=== PATIENT | male | born 1960 | race African-American/Black ===

== ENCOUNTER 2017-07-02 11:34 | Emergency (ER) | payer OTHER ==
[~2017-07-02] VITALS: Ht 182.9 cm; Wt 100.0 kg
[~2017-07-02 11:34] MED LIST: ATOR20TA PO; HYDR-3534 PO; MEDR4PAK3 PO; NORV10TA PO; SYNT112T PO
[2017-07-02 11:36] VITALS: BP 139/76; PULSE 93; RESP 15; TEMP 97.8; O2SAT 97
--- NOTE | 2017-07-02 12:00 | PD ---
HPI Chief Complaint: Headache Time Seen by Provider: 11:51 Travel History International Travel<30 days: No Contact w/Intl Traveler<30days: No Traveled to known affect area: No History of Present Illness HPI This patient complains of headache. Duration is 4 days. It's located in the left parietal area. By his own admission it's very minor. He has a vague minimal throbbing but he wanted to make sure he wasn't anything dangerous. No trauma thunderclap onset or fever. No neurologic complaint otherwise. PFSH Past Medical History Anxiety: Yes Cancer: Yes (PROSTATE) Cardiovascular Problems: Yes High Cholesterol: Yes Chest Pain: Yes (12/30/13) Diabetes: Yes (TYPE 2, DX. OCTOBER 2013) Diminished Hearing: No Endocrine: Yes Gastrointestinal Disorders: No Genitourinary: Yes Hypertension: Yes Immune Disorder: No Musculoskeletal: No Neurologic: No Psychiatric: Yes Reproductive: No Respiratory: No Thyroid Disease: Yes Past Surgical History Endocrine Surgery: Yes (THYROID SURGERY) Other Surgery: No Social History Alcohol Use: No Tobacco Use: No Substance Use: No Allergies-Medications (Allergen,Severity, Reaction): Coded Allergies: No Known Allergies (Unverified , 01/19/16) Reported Meds & Prescriptions Reported Meds & Active Scripts Active Lortab 7.5 mg/325 mg (Hydrocodone/Acetaminophen 7.5 mg/325 mg) 1 Tab 1 Tab PO Q4H PRN Medrol Dosepak (Methylprednisolone) 4 Mg Ronald 4 Mg PO DIRECTED TAKE DIRECTED Reported Atorvastatin 20 mg tab (Atorvastatin Calcium) 20 Mg Tab 20 Mg PO HS Norvasc (Amlodipine Besylate) 10 Mg Tab 10 Mg PO DAILY Synthroid 112 mcg (Levothyroxine Sodium) 112 Mcg Tab 112 Mcg PO DAILY TAKE ON AN EMPTY STOMACH Review of Systems General / Constitutional: No: Fever Cardiovascular: No: Chest Pain or Discomfort Respiratory: No: Cough Physical Exam Narrative NEUROLOGICAL: Awake and alert. Pupils are equal round and reactive. Motor and sensory grossly within normal limits. Five out of 5 muscle strength in all muscle groups. Normal speech. SKIN: Focused skin assessment reveals no rash or ulcers. Skin is warm and dry. Palpation shows no induration or nodules. NECK: Symmetrical appearance, midline trachea. No mass or crepitus. Thyroid without enlargement, tenderness, or mass. Scalp is normal Data Data Last Documented VS Vital Signs Date Time Temp Pulse Resp B/P (MAP) Pulse Ox O2 Delivery O2 Flow Rate FiO2 07/02/17 11:36 97.8 93 15 139/76 (97) 97 MDM Medical Decision Making Medical Screen Exam Complete: Yes Emergency Medical Condition: Yes Medical Record Reviewed: Yes Differential Diagnosis Differential diagnosis includes migraine, tension headache, cluster headache, meningitis. Narrative Course I have reviewed the patient's electronic medical record. This Is a very nervous and anxious fellow with a very minimal headache just wanted to make sure he didn't have anything serious going on. He is neurologically intact and no red flags to suggest emergent imaging is indicated. Recommend primary care follow-up. Diagnosis Primary Impression: Headache Qualified Codes: R51 - Headache Additional Instructions: The patient was advised to follow up with their physician and return if they worsen. Med/Other Pt SpecificInfo: Other Disposition: 01 DISCHARGE HOME Condition: Stable Jono Cote MD Jul 02, 2017 12:00
== END 2017-07-02 12:04 | disposition home or self-care (01) ==
LOC: NEPD 11:34
DX: R51 Headache (principal); F41.9 Anxiety disorder, unspecified; E78.00 Pure hypercholesterolemia, unspecified; E11.9 Type 2 diabetes mellitus without complications; I10 Essential (primary) hypertension; E07.9 Disorder of thyroid, unspecified; Z85.46 Personal history of malignant neoplasm of prostate
CPT/HCPCS: 99282